=== PATIENT | female | born 1935 | race Caucasian/White ===

== ENCOUNTER 2016-07-21 13:40 | Inpatient (IN) | payer OTHER, BC ==
[~2016-07-21] VITALS: Ht 162.6 cm; Wt 110.8 kg
[~2016-07-21 13:40] MED LIST: AMLODIPINE BESY10 MG PO; ASPIRIN325 MG PO; CINNAMON500 MG PO; DILAUDID2 MG PO; DIOVAN320 MG PO; FISH OIL500 MG PO; FLOVENT DISKUS1 DIS2 IH; GABAPENTIN600 MG PO; GARLIC1000 MG PO; GEMFIBROZIL600 MG PO; GLYBURIDE5 MG PO; HUMULIN N100 UNITS/ SC; LOPRESSOR50 MG PO; LORATADINE10 M2 PO; NITROSTAT0.4 MG SL; NOVOLIN N100 UNITS/ SC; OMEPRAZOLE20 MG PO; PERCOCET 5/31 TABLET PO; PRAVASTATIN SOD40 MG PO; TRAMADOL HCL50 MG PO; ZOFRAN4 MG PO
[2016-07-21 20:09] LABS: HEMATOCRIT 38.1 % (36.0-46.0); MCH 31.8 PG (29.0-34.0); MCHC 33.3 G/DL (30.0-36.0); MCV 95.3 FL (83-99); MEAN PLAT.VOLUME 9.7 uM^3 (9.5-12.4); PLATELET COUNT 254 K/uL (156-360); RBC DIS.WIDTH-CV 12.6 % (11.8-14.6); RBC DIS.WIDTH-SD 42.6 % (39-53); WHITE BLOOD COUNT 11.9 K/uL (4.1-10.2)
[2016-07-21 20:21] LABS: INTER. NORMALIZED RATIO 1.1; PROTHROMBIN TIME 11.2 (9.2-11.2)
[2016-07-21 20:24] LABS: CHLORIDE 110 mEq/L (99-109); POTASSIUM 4.3 mEq/L (3.7-5.4); SODIUM 144 mEq/L (136-147)
[2016-07-21 20:26] LABS: GLUCOSE 124 mg/dL (70-99)
[2016-07-21 20:27] LABS: ANION GAP 9 MEQ/L (2-14)
[2016-07-21 20:28] LABS: TOTAL BILIRUBIN 0.4 mg/dL (0.0-1.0)
[2016-07-21 20:30] LABS: ALKALINE PHOSPHATASE 99 IU/L (3-129); GFR ESTIMATE (CALCULATED) > 59 mL/min/
[2016-07-21 20:31] LABS: UREA NITROGEN (BUN) 16 mg/dL (9-23)
[2016-07-21 21:41] VITALS: BP 141/64
[2016-07-21] MEDS ORDERED: ATORVASTATIN CA40 MG PO (22:24)
[2016-07-21] MEDS ORDERED: FISH OIL 1,0001 EAC7 PO (22:25)
[2016-07-21] MEDS ORDERED: NOVOLIN N100 UNITS/ SC (22:31)
[2016-07-21 23:31] VITALS: BP 141/63
[2016-07-22 03:42] VITALS: BP 150/60
[2016-07-22 08:04] VITALS: BP 119/58
[2016-07-22 09:13] LABS: HEMATOCRIT 34.6 % (36.0-46.0); MCH 31.1 PG (29.0-34.0); MCHC 31.8 G/DL (30.0-36.0); MCV 97.7 FL (83-99); MEAN PLAT.VOLUME 10.5 uM^3 (9.5-12.4); PLATELET COUNT 232 K/uL (156-360); RBC DIS.WIDTH-SD 46.3 % (39-53); RED BLOOD COUNT 3.54 M/uL (3.80-5.20); WHITE BLOOD COUNT 8.8 K/uL (4.1-10.2)
[2016-07-22 09:33] LABS: ALKALINE PHOSPHATASE 77 IU/L (3-129); ANION GAP 6 MEQ/L (2-14); CHLORIDE 106 MEQ/L (99-109); GFR ESTIMATE (CALCULATED) > 59 mL/min/; GLUCOSE 177 mg/dL (70-99); POTASSIUM 4.5 MEQ/L (3.7-5.4); SAMPLE HEMOLYSIS CHECK 0; SAMPLE ICTERIC CHECK 0; SAMPLE LIPEMIA CHECK 0; SODIUM 137 MEQ/L (136-147); TOTAL BILIRUBIN 0.4 MG/DL (0.0-1.0); UREA NITROGEN (BUN) 15 mg/dL (9-23)
[2016-07-22 16:03] VITALS: BP 141/63
[2016-07-22 17:04] LABS: POINT-OF-CARE METER ID UU14188577
[2016-07-22 19:39] VITALS: BP 132/60
[2016-07-22 23:11] VITALS: BP 137/61
[2016-07-23 04:07] VITALS: BP 156/67
[2016-07-23 06:57] LABS: POINT-OF-CARE METER ID UU14188577
[2016-07-23 07:53] VITALS: BP 116/97
[2016-07-23 16:22] VITALS: BP 143/66
[2016-07-23 17:10] LABS: POINT-OF-CARE METER ID UU14149397
[2016-07-23 19:43] VITALS: BP 145/63
[2016-07-23 21:23] LABS: POINT-OF-CARE METER ID UU14188577
[2016-07-24 00:06] VITALS: BP 154/65
[2016-07-24 04:58] VITALS: BP 154/70
[2016-07-24 06:22] LABS: POINT-OF-CARE METER ID UU14149397
[2016-07-24 08:04] VITALS: BP 135/65
[2016-07-24 12:18] LABS: POINT-OF-CARE METER ID UU14188577
[2016-07-24] MEDS ORDERED: ENDOCET 5-3251 EACH PO (15:19)
[2016-07-24] MEDS ORDERED: TRAMADOL HCL50 MG PO (15:19)
== END 2016-07-24 16:51 | DRG 563 ==
LOC: EME 13:40 → EDOF 19:51 → 3EAST 19:51
PROVIDERS: Emergency Medicine; Hospitalist; Internal Medicine
PROC: 0QSJXZZ Reposition Right Fibula, External Approach (ICD-10-PCS; principal; 2016-07-21)
DX: S82.851A Displaced trimalleolar fracture of right lower leg, initial encounter for closed fracture (principal); Z68.41 Body mass index [BMI] 40.0-44.9, adult; J98.11 Atelectasis; S82.431A Displaced oblique fracture of shaft of right fibula, initial encounter for closed fracture; W00.0XXA Fall on same level due to ice and snow, initial encounter; I10 Essential (primary) hypertension; I25.10 Atherosclerotic heart disease of native coronary artery without angina pectoris; E66.01 Morbid (severe) obesity due to excess calories; Y93.01 Activity, walking, marching and hiking; E11.40 Type 2 diabetes mellitus with diabetic neuropathy, unspecified; R06.89 Other abnormalities of breathing; J45.909 Unspecified asthma, uncomplicated; E78.5 Hyperlipidemia, unspecified; K59.00 Constipation, unspecified; E78.00 Pure hypercholesterolemia, unspecified; Z87.891 Personal history of nicotine dependence; Z98.61 Coronary angioplasty status; Z79.4 Long term (current) use of insulin; Z60.2 Problems related to living alone; Z79.82 Long term (current) use of aspirin; Y92.481 Parking lot as the place of occurrence of the external cause
CPT/HCPCS: 71010; 73560; 73610; 80053; 82948; 85027; 85610; 85730; 94640; 94640 76; 94799; 99202; 99281; 99285; J1650; J1815; J2270; J2405; J7030; S0028

== ENCOUNTER 2016-08-01 14:09 | Day surgery (SDC) | payer OTHER, BC ==
[~2016-08-01] VITALS: Ht 162.6 cm; Wt 106.0 kg
[~2016-08-01 14:09] MED LIST changes: +ATORVASTATIN CA40 MG PO; +ENDOCET 5-3251 EACH PO; +FISH OIL 1,0001 EAC7 PO; +MIRALAX17 GM PO; +OMEGA 3 500 SO1 EACH PO; +PROSOURCE LIQUI30 ML PO
[2016-08-01 15:05] VITALS: BP 133/63
[2016-08-01 15:28] LABS: POINT-OF-CARE METER ID UU14174212
[2016-08-01 16:10] LABS: METH RESISTANT S AUREUS PCR NEGATIVE (NEGATIVE)
[2016-08-01 16:24] LABS: PROBE CHECK PASS; SPECIMEN PROCESSING CONTROL PASS
[2016-08-01 18:01] LABS: POINT-OF-CARE METER ID UU13113675
[2016-08-01 22:09] VITALS: BP 135/90
[2016-08-01 22:10] VITALS: BP 135/90
[2016-08-01 23:46] VITALS: BP 126/60
[2016-08-02 04:28] VITALS: BP 122/58
[2016-08-02 06:50] LABS: POINT-OF-CARE METER ID UU14149397
[2016-08-02 07:50] VITALS: BP 118/53
[2016-08-02 11:36] VITALS: BP 112/52
[2016-08-02] MEDS ORDERED: ENDOCET 5-3251 EACH PO (12:58)
[2016-08-02 16:38] VITALS: BP 130/56
[2016-08-02 21:59] LABS: POINT-OF-CARE METER ID UU14149397
[2016-08-03 00:06] VITALS: BP 135/60
[2016-08-03 06:21] LABS: POINT-OF-CARE METER ID UU14149397
[2016-08-03 08:56] VITALS: BP 112/52
[2016-08-03] MEDS ORDERED: LOPRESSOR25 MG PO (15:33)
[2016-08-03] MEDS ORDERED: VALSARTAN160 MG PO (15:33)
== END 2016-08-03 15:55 ==
LOC: SDC 14:09 → 3EAST 17:37 → 2SOUTH 17:37 → 3EAST 21:07
PROVIDERS: Orthopaedic Surgery
DX: S82.851A Displaced trimalleolar fracture of right lower leg, initial encounter for closed fracture (principal); Y92.9 Unspecified place or not applicable; E11.9 Type 2 diabetes mellitus without complications; Z86.718 Personal history of other venous thrombosis and embolism; J45.909 Unspecified asthma, uncomplicated; I25.10 Atherosclerotic heart disease of native coronary artery without angina pectoris; Z95.5 Presence of coronary angioplasty implant and graft
CPT/HCPCS: 73600; 76000; 82948; 87641; 93005; 94640; 94640 76; 94799; C1713; G0378; G8978 GP CJ; G8979 GP CI; G8987 CK; G8988 GO CJ; J0131; J0330; J0690; J1170; J1815; J2250; J2270; J2405; J3010; J7120

== ENCOUNTER 2017-10-13 16:17 | Emergency (ER) | payer OTHER, BC ==
[~2017-10-13] VITALS: Ht 162.6 cm; Wt 111.1 kg
[~2017-10-13 16:17] MED LIST changes: +LOPRESSOR25 MG PO; +VALSARTAN160 MG PO
[2017-10-13 17:23] LABS: HEMOGLOBIN 13.8 G/DL (11.9-15.5); MCHC 33.7 G/DL (30.0-36.0); MCV 95.1 FL (83-99); PLATELET COUNT 293 K/uL (156-360); RBC DIS.WIDTH-SD 45.7 % (39-53); RED BLOOD COUNT 4.31 M/uL (3.80-5.20); WHITE BLOOD COUNT 8.3 K/uL (4.1-10.2)
[2017-10-13 17:38] LABS: ALBUMIN 4.3 g/dL (3.2-4.8); CHLORIDE 111 mEq/L (99-109); POTASSIUM 4.3 mEq/L (3.7-5.4); SODIUM 145 mEq/L (136-147)
[2017-10-13 17:40] LABS: GLUCOSE 166 mg/dL (70-99)
[2017-10-13 17:41] LABS: TOTAL PROTEIN 7.8 g/dL (6.4-8.3)
[2017-10-13 17:42] LABS: TOTAL BILIRUBIN 0.3 mg/dL (0.0-1.0)
[2017-10-13 17:44] LABS: ALKALINE PHOSPHATASE 108 IU/L (3-129); GFR ESTIMATE (CALCULATED) 56 mL/min/
[2017-10-13 17:45] LABS: UREA NITROGEN (BUN) 24 mg/dL (9-23)
[2017-10-13 17:45] LABS: APPEARANCE CLEAR ((CLEAR)); BILIRUBIN NEGATIVE; BLOOD SMALL; COLOR YELLOW ((YELLOW)); GLUCOSE (STRIP) NEGATIVE; KETONES NEGATIVE; LEUKOCYTES SMALL; NITRITE POSITIVE; PROTEIN (STRIP) NEGATIVE; SPECIFIC GRAVITY 1.008 (1.000-1.030); UROBILINOGEN 0.2 MG/DL (0.2-1.0)
[2017-10-13 17:46] LABS: AST (GOT) 26 IU/L (2-34)
[2017-10-13 17:47] LABS: ALT (GPT) 32 IU/L (3-49); LIPASE 16 U/L (1.0-51.0)
[2017-10-13 17:53] LABS: BACTERIA RARE /HPF; EPITHELIAL CELLS RARE /HPF; HYALINE CASTS 0-5 /LPF; MUCUS NONE SEEN /LPF; RED BLOOD CELLS 0-5 /HPF (0-5); UCUL ADDED? YES
[2017-10-13 17:54] LABS: TROP-I INTERPRETATION NEGATIVE; TROPONIN-I < 0.01 ng/mL (0.0-0.30)
[2017-10-13] MEDS ORDERED: KEFLEX500 MG PO (18:33)
[2017-10-13 18:48] VITALS: BP 146/51
== END 2017-10-13 18:59 | disposition home or self-care (01) ==
LOC: EME 16:17
PROVIDERS: Emergency Medicine
DX: N30.00 Acute cystitis without hematuria (principal); Z87.440 Personal history of urinary (tract) infections; E78.5 Hyperlipidemia, unspecified; E11.42 Type 2 diabetes mellitus with diabetic polyneuropathy; Z79.4 Long term (current) use of insulin; I25.10 Atherosclerotic heart disease of native coronary artery without angina pectoris; J45.909 Unspecified asthma, uncomplicated; Z95.5 Presence of coronary angioplasty implant and graft; K21.9 Gastro-esophageal reflux disease without esophagitis; Z88.5 Allergy status to narcotic agent; Z88.8 Allergy status to other drugs, medicaments and biological substances; Z87.891 Personal history of nicotine dependence
CPT/HCPCS: 71045; 80053; 81003; 83690; 84484; 85027; 87077; 87086 GA; 87186; 93005; 99281; 99284